=== PATIENT | male | born 1995 | race Caucasian/White ===

== ENCOUNTER → 2017-12-19 | Emergency (ER) | payer SELFPAY ==
[~2017-12-19] MED LIST: Sodium Chloride 0.9% 1000 ML 1,000 ML IV STA; Sodium Chloride 0.9% 1000 ML 1,000 ML ONE; VERSED 5 MG/5 ML ONE; Versed 2 MG/2 ML Injection IV ONE
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
[2017-12-19 22:02] LABS: Granulocyte Absolute (ANC) 9.34 (1.4-6.9); Hematocrit 47.7 % (42-50); Hemoglobin 15.9 gm/dl (12.5-18.0); Mean Cell Volume 89.2 fl (78-100); Mean Corpuscular Hemoglobin 29.7 pg (26-32); Mean Corpuscular Hgb Concent. 33.3 g/dl (32-36); Mean Platelet Volume 11.1 fl (6-9.5); Platelet Count 325 K/mm3 (150-450); Red Blood Count 5.35 M/mm3 (4.1-5.6); Red Cell Distribution Width 13.8 % (11.5-14.0); White Blood Count 17.4 K/mm3 (4.0-10.5)
[2017-12-19 22:20] LABS: Amphetamine,Urine NEG. (NEGATIVE); Barbiturate,Urine NEG. (NEGATIVE); Benzodiazepine,Urine NEG. (NEGATIVE); Cocaine,Urine NEG. (NEGATIVE); Methadone,Urine NEG. (NEGATIVE); Opiate,Urine NEG. (NEGATIVE); PCP,Urine NEG. (NEGATIVE); THC,Urine NEG. (NEGATIVE)
[2017-12-19 22:31] LABS: ALBUMIN 4.8 g/dL (3.4-5.0); ALKALINE PHOSPHATASE 78 U/L (46-116); ANION GAP 19.9 MEQ/L (5-15); BLOOD UREA NITROGEN 11 mg/dL (9-20); CHLORIDE 102 mEq/L (98-107); Calcium 8.8 mg/dL (8.5-10.1); Carbon Dioxide 24.9 mEq/L (21-32); Creatinine 1 0.99 mg/dl (0.55-1.30); EST GLOMERULAR FILTRATION RATE > 60 ML/MIN; Glucose 122 MG/DL (70-110); Potassium 3.6 mEq/L (3.5-5.1); SGOT/AST 33 U/L (15-37); SGPT/ALT 31 U/L (12-78); SODIUM 143 mEq/L (136-145); Total Protein 8.9 gm/dL (6.4-8.2)
[2017-12-19 22:50] LABS: Appearance CLEAR (CLEAR); Bilirubin NEGATIVE (NEGATIVE); Blood 50 Ery/ul (0-5); Glucose NEGATIVE (NEGATIVE); Ketones NEGATIVE (NEGATIVE); Leukocyte Esterase NEGATIVE (NEGATIVE); Nitrite NEGATIVE (NEGATIVE); Protein,Urine Dip TRACE (Negative); Urobilinogen NORMAL mg/dL (0-1)
[2017-12-19 22:51] LABS: Bacteria RARE /HPF (NEGATIVE)
[2017-12-19 22:58] VITALS: BP 127/86; PULSE 116
[2017-12-19 23:20] VITALS: O2SAT 100
[2017-12-20 02:44] LABS: ANISOCYTOSIS 1+; Eosinophil 3 % (0.00-3.0); Lymphocytes 35 % (24-44); Monocyte 5 % (0.0-12.0); Neutrophils 57 % (36.-66.); Platelet Estimate NORMAL (NORMAL); Poikilocytosis 1+; Total Cells Counted 100
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
== END ==
LOC: ED 21:07
DX: I60.9 Nontraumatic subarachnoid hemorrhage, unspecified (principal)
CPT/HCPCS: 36000; 36415; 51702; 70450; 72125; 80053; 80307; 81000; 85025; 93041; 96360; 99285; G0480; G0481; J2250

== ENCOUNTER 2019-12-08 19:06 | Emergency (ER) | payer SELFPAY ==
[2019-12-08] MEDS ORDERED: Zofran 4 MG/2 ML VIAL IV ONE (19:33)
[2019-12-08] MEDS ORDERED: Sodium Chloride 0.9% 1000 ML 1,000 ML IV STA (19:33)
[2019-12-08] MEDS ORDERED: Zofran 4 MG/2 ML VIAL ONE (19:37)
[2019-12-08] MEDS ORDERED: Sodium Chloride 0.9% 1000 ML 1,000 ML ONE (19:37)
[2019-12-08 20:00] LABS: ALKALINE PHOSPHATASE 67 U/L (38-126); ANION GAP 15.3 MEQ/L (5-15); BLOOD UREA NITROGEN 17 mg/dL (9-20); CHLORIDE 101 mmol/L (98-107); Calcium 9.5 mg/dL (8.4-10.2); Carbon Dioxide 29 mmol/L (22-30); Creatinine 1 0.86 mg/dL (0.66-1.25); Glucose 84 mg/dL (74-106); LIPASE 59 U/L (23-300); Potassium 3.5 mmol/L (3.5-5.1); SGOT/AST 24 U/L (17-59); SGPT/ALT 19 U/L (0-50); SODIUM 141 mmol/L (137-145)
[2019-12-08 20:02] LABS: Absolute Neutrophil Ct (ANC) 3.52 (1.4-6.9); BASOPHIL % 0.1 % (0.0-0.4); Basophil (Absolute #) 0.01 (0-0.4); Eosinophil % 1.5 % (0.00-5.0); Hematocrit 45.5 % (42-50); Hemoglobin 15.6 gm/dl (12.5-18.0); Lymphocyte (Absolute #) 2.35 (1.0-4.6); Lymphocytes % 34.5 % (24.0-44.0); Mean Cell Volume 86.7 fl (78-100); Mean Corpuscular Hemoglobin 29.7 pg (26-32); Mean Corpuscular Hgb Concent. 34.3 g/dl (32-36); Mean Platelet Volume 11.2 fl (7.5-11.0); Monocyte (Absolute #) 0.84 (0.0-1.3); Monocytes % 12.3 % (0.0-12.0); Neutrophil % 51.6 % (36.0-66.0); Platelet Count 233 K/mm3 (150-450); Red Blood Count 5.25 M/mm3 (4.1-5.6); White Blood Count 6.8 K/mm3 (4.0-10.5)
--- NOTE | 2019-12-08 20:25 | ERPHSYRPT ---
- History of Present Illness Time Seen by Provider: 12/08/19 19:30 Source: patient Exam Limitations: no limitations Patient Subjective Stated Complaint: pt states he has had a cough and vomiting for the last week. states he has not been able to keep anything down and feels like he may be dehydrated Triage Nursing Assessment: pt alert and oriented, answers questions approp. pt ambulatory with steady gait noted. skin pink warm and dry. respirations nonlabored with lungs cta. abd soft and nontender with bowel sounds present x4 Physician History: Patient is a 22-year-old male presents to our ED with complaints of nausea vomiting. Patient states he is unable to tolerate p.o. Patient had a cough last week. He experienced one bout of nausea and vomiting. However nausea vomiting at that time resolved. Patient's cough has now resolved. He denies pain. No trauma. No fever. No diarrhea. No rash. Symptoms are mild to moderate intensity. No specific worsening improving factors. Patient voices no other complaints this time. Timing/Duration: today, week(s) Severity: mild Modifying Factors: Improves With: other (No modifying factors.) Associated Symptoms: nausea, vomiting, No abdominal pain, No shortness of breath , No heartburn, No diaphoresis, No cough, No chills, No chest pain, No fever, No headaches, No loss of appetite, No malaise Allergies/Adverse Reactions: No Known Drug Allergies Allergy (Verified 12/08/19 19:26) Home Medications: No Reportable Medications [No Reported Medications] 12/08/19 [History] Hx Tetanus, Diphtheria Vaccination/Date Given: Yes Hx Influenza Vaccination/Date Given: No Hx Pneumococcal Vaccination/Date Given: No Immunizations Up to Date: Yes - Review of Systems Constitutional: No Fever, No Chills Eyes: No Symptoms Ears, Nose, & Throat: No Symptoms Respiratory: No Cough, No Dyspnea Cardiac: No Chest Pain, No Edema, No Syncope Abdominal/Gastrointestinal: Nausea, Vomiting, No Abdominal Pain, No Diarrhea Genitourinary Symptoms: No Dysuria Musculoskeletal: No Back Pain, No Neck Pain Skin: No Rash Neurological: No Dizziness, No Focal Weakness, No Sensory Changes Psychological: No Symptoms Endocrine: No Symptoms All Other Systems: Reviewed and Negative - Past Medical History Pertinent Past Medical History: No Other Medical History: heart murmur - Past Surgical History Past Surgical History: Yes Gastrointestinal: Hernia Repair - Social History Smoking Status: Never smoker Exposure to second hand smoke: Yes Drug Use: none Patient Lives Alone: No - Nursing Vital Signs Nursing Vital Signs: Initial Vital Signs Temperature 97.5 F 12/08/19 19:16 Pulse Rate 60 12/08/19 19:16 Respiratory Rate 16 12/08/19 19:16 Blood Pressure 137/96 12/08/19 19:16 O2 Sat by Pulse Oximetry 97 12/08/19 19:16 Pain Scale Pain Intensity 0 - Physical Exam General Appearance: no apparent distress, alert Eye Exam: PERRL/EOMI, eyes nml inspection Ears, Nose, Throat Exam: normal ENT inspection, TMs normal, pharynx normal, moist mucous membranes Neck Exam: normal inspection, non-tender, supple, full range of motion Respiratory Exam: normal breath sounds, lungs clear, No respiratory distress Cardiovascular Exam: regular rate/rhythm, normal heart sounds, normal peripheral pulses Gastrointestinal/Abdomen Exam: soft, normal bowel sounds, No tenderness, No mass Back Exam: normal inspection, normal range of motion, No CVA tenderness, No vertebral tenderness Extremity Exam: normal inspection, normal range of motion, pelvis stable Neurologic Exam: alert, oriented x 3, cooperative, normal mood/affect, nml cerebellar function, nml station & gait, sensation nml, No motor deficits Skin Exam: normal color, warm, dry, No rash Lymphatic Exam: No adenopathy SpO2 Interpretation: normal SpO2: 97 O2 Delivery: Room Air Ordered Tests: Active Orders 24 hr Category Date Time Status IV Insertion STAT Care 12/08/19 19:33 Active CBC W DIFF Stat Lab 12/08/19 19:41 Completed CMP Stat Lab 12/08/19 19:41 Completed LIPASE Stat Lab 12/08/19 19:41 Completed UA W/RFX UR CULTURE Stat Lab 12/08/19 21:30 Completed Medication Summary Discontinued Medications Generic Name Dose Route Start Last Admin Trade Name Freq PRN Reason Stop Dose Admin Sodium Chloride 1,000 mls @ 999 mls/hr 12/08/19 19:33 12/08/19 20:33 Sodium Chloride 0.9% 1000 Ml IV 12/08/19 20:33 Infused .Q1H1M STA Infusion Sodium Chloride Confirm 12/08/19 19:37 Sodium Chloride 0.9% 1000 Ml Administered 12/08/19 19:38 Dose 1,000 mls @ ud .ROUTE .STK-[facility] ONE Ondansetron HCl 4 mg 12/08/19 19:33 12/08/19 19:39 Zofran 4 Mg/2 Ml Vial IV 12/08/19 19:34 4 mg STAT ONE Administration Ondansetron HCl Confirm 12/08/19 19:37 Zofran 4 Mg/2 Ml Vial Administered 12/08/19 19:38 Dose 4 mg .ROUTE .[facility] ONE Lab/Rad Data: Laboratory Result Diagrams 12/08/19 19:41 12/08/19 19:41 Laboratory Results 12/08/19 12/08/19 12/08/19 Range/Units 21:30 19:41 19:41 WBC 6.8 (4.0-10.5) K/mm3 RBC 5.25 (4.1-5.6) M/mm3 Hgb 15.6 (12.5-18.0) gm/dl Hct 45.5 (42-50) % MCV 86.7 (78-100) fl MCH 29.7 (26-32) pg MCHC 34.3 (32-36) g/dl RDW 13.0 (11.5-14.0) % Plt Count 233 (150-450) K/mm3 MPV 11.2 H (7.5-11.0) fl Gran % 51.6 (36.0-66.0) % Eos # (Auto) 0.10 (0-0.5) Absolute Lymphs (auto) 2.35 (1.0-4.6) Absolute Monos (auto) 0.84 (0.0-1.3) Lymphocytes % 34.5 (24.0-44.0) % Monocytes % 12.3 H (0.0-12.0) % Eosinophils % 1.5 (0.00-5.0) % Basophils % 0.1 (0.0-0.4) % Absolute Granulocytes 3.52 (1.4-6.9) Basophils # 0.01 (0-0.4) Sodium 141 (137-145) mmol/L Potassium 3.5 (3.5-5.1) mmol/L Chloride 101 (98-107) mmol/L Carbon Dioxide 29 (22-30) mmol/L Anion Gap 15.3 H (5-15) MEQ/L BUN 17 (9-20) mg/dL Creatinine 0.86 (0.66-1.25) mg/dL Estimated GFR > 60.0 ML/MIN Glucose 84 (74-106) mg/dL Calcium 9.5 (8.4-10.2) mg/dL Total Bilirubin 2.40 H (0.2-1.3) mg/dL AST 24 (17-59) U/L ALT 19 (0-50) U/L Alkaline Phosphatase 67 (38-126) U/L Serum Total Protein 9.0 H (6.3-8.2) g/dL Albumin 5.0 (3.5-5.0) g/dL Lipase 59 (23-300) U/L Urine Color YELLOW (YELLOW) Urine Appearance CLEAR (CLEAR) Urine pH 6.0 (5-6) Ur Specific [place] 1.028 (1.005-1.025) Urine Protein NEGATIVE (Negative) Urine Ketones MODERATE (NEGATIVE) Urine Blood NEGATIVE (0-5) Duran/ul Urine Nitrite NEGATIVE (NEGATIVE) Urine Bilirubin NEGATIVE (NEGATIVE) Urine Urobilinogen NEGATIVE (0-1) mg/dL Ur Leukocyte Esterase NEGATIVE (NEGATIVE) Urine WBC (Auto) 0-2 (0-5) /HPF Urine RBC (Auto) NONE (0-2) /HPF U Epithel Cells (Auto) NONE (FEW) /HPF Urine Bacteria (Auto) NONE (NEGATIVE) /HPF Urine Mucus (Auto) MANY (NEGATIVE) /HPF Urine Culture Reflexed NO (NO) Urine Glucose NEGATIVE (NEGATIVE) mg/dL - Progress Progress: improved Progress Note: 12/08/19 20:23 Patient reassessed. Nausea and vomiting resolved. Patient appears well. Nontoxic no acute distress. Patient tolerating p.o. Patient requesting discharge. Counseled pt/family regarding: lab results, diagnosis, need for follow-up - Departure Departure Disposition: Home Clinical Impression: Nausea and vomiting Condition: Good Critical Care Time: No Referrals: DOCTOR,NO FAMILY [Primary Care Provider] - Instructions: Nausea -- Adult, Vomiting -- Adult Additional Instructions: Discharge/Care Plan POORNIMA LO was seen on 12/08/19 in the Emergency Room. The patient was counseled regarding Diagnosis,Lab results, Imaging studies, need for follow up and when to return to the Emergency Room. Prescriptions given: Discharge Note I have spoken with the patient and/or caregivers. I have explained the patient' s condition, diagnosis and treatment plan based on the information available to me at this time. I have answered the patient's and/or caregiver's questions and addressed any concerns. The patient and/or caregivers have as good understanding of the patient's diagnosis, condition and treatment plan as can be expected at this point. The vital signs have been stable. The patient's condition is stable and appropriate for discharge from the emergency department. The patient will pursue further outpatient evaluation with the primary care physician or other designated or consulting physician as outlined in the discharge instructions. The patient and/or caregivers are agreeable to this plan of care and follow-up instructions have been explained in detail. The patient and/or caregivers have received these instruction. The patient/and or caregivers are aware that any significant change in condition or worsening of symptoms should prompt an immediate return to this or the closest emergency department or call 911.
[2019-12-08 20:26] VITALS: BP 133/83
[2019-12-08 20:35] VITALS: PULSE 64
[2019-12-08 22:09] LABS: Appearance CLEAR (CLEAR); Bilirubin NEGATIVE (NEGATIVE); Blood NEGATIVE Ery/ul (0-5); Glucose NEGATIVE (NEGATIVE); Ketones MODERATE (NEGATIVE); Leukocyte Esterase NEGATIVE (NEGATIVE); Mucus MANY /HPF (NEGATIVE); Nitrite NEGATIVE (NEGATIVE); Protein,Urine Dip NEGATIVE (Negative); Specific Gravity 1.028 (1.005-1.025); Urobilinogen NEGATIVE mg/dL (0-1); WBC 0-2 /HPF (0-5)
[2019-12-09 02:03] VITALS: O2SAT 97
== END 2019-12-08 20:30 | disposition home or self-care (01) ==
LOC: ED 19:06
DX: R11.2 Nausea with vomiting, unspecified (principal)
CPT/HCPCS: 36000; 36415; 80053; 81001; 83690; 85025; 96374; 99284; J2405

== ENCOUNTER 2019-12-15 08:10 | Emergency (ER) | payer MEDICAID ==
[2019-12-15] MEDS ORDERED: Sodium Chloride 0.9% 1000 ML 1,000 ML IV STA (08:22)
[2019-12-15] MEDS ORDERED: TORAdol 30 mg Injection IV ONE (08:22)
[2019-12-15] MEDS ORDERED: Sodium Chloride 0.9% 1000 ML 1,000 ML ONE (08:30)
[2019-12-15] MEDS ORDERED: TORAdol 30 mg Injection ONE (08:30)
--- NOTE | 2019-12-15 08:38 | ERPHSYRPT ---
- History of Present Illness Time Seen by Provider: 12/15/19 08:20 Historian: patient Exam Limitations: no limitations Patient Subjective Stated Complaint: Pt states "This morning I had horrible pain in my kidneys and lower abdomen. Mostly on the left side." Triage Nursing Assessment: Pt presented alert and oriented X 3, skin wpd PT ambulates with an uprgith steady gait, able to speak in clear full sentences. Pt in no apparent respiratory distress. Physician History: Patient is a 24-year-old male presents to our ED with abdominal pain. Patient' s pain started this morning upon awakening. Patient states he rolled onto his side and developed a severe periumbilical pain that radiated towards his kidney. Pain described as an ache that was constant. Pain somewhat improved but not resolved. No associated nausea or vomiting. No diarrhea. No trauma. No fever. Pain is moderate in intensity. No significant worsening or improving factors. Patient is otherwise healthy. He voices no other complaints at this time. Timing/Duration: today Activities at Onset: none Quality: aching Abdominal Pain Onset Location: periumbilical, flank Pain Radiation: flank Severity of Pain-Max: moderate Severity of Pain-Current: moderate Modifying Factors: Improves With: nothing Associated Symptoms: No chest pain, No diaphoresis, No diarrhea, No fever/chills , No fatigue, No headache, No heartburn, No loss of appetite, No nausea, No rash , No shortness of breath, No syncope, No testicular pain, No vomiting, No weakness Previous symptoms: no prior history Allergies/Adverse Reactions: No Known Drug Allergies Allergy (Verified 12/08/19 19:26) Home Medications: No Reportable Medications [No Reported Medications] 12/08/19 [History] Hx Tetanus, Diphtheria Vaccination/Date Given: Yes Hx Influenza Vaccination/Date Given: No Hx Pneumococcal Vaccination/Date Given: No Immunizations Up to Date: Yes - Review of Systems Constitutional: No Fever, No Chills Eyes: No Symptoms Ears, Nose, & Throat: No Symptoms Respiratory: No Cough, No Dyspnea Cardiac: No Chest Pain, No Edema, No Syncope Abdominal/Gastrointestinal: Abdominal Pain, Constipation, No Nausea, No Vomiting , No Diarrhea Genitourinary Symptoms: No Symptoms, No Dysuria Musculoskeletal: No Symptoms, No Back Pain, No Neck Pain Skin: No Symptoms, No Rash Neurological: No Symptoms, No Dizziness, No Focal Weakness, No Sensory Changes Psychological: No Symptoms Endocrine: No Symptoms Hematologic/Lymphatic: No Symptoms All Other Systems: Reviewed and Negative - Past Medical History Pertinent Past Medical History: No Other Medical History: heart murmur - Past Surgical History Past Surgical History: Yes Gastrointestinal: Hernia Repair - Social History Smoking Status: Never smoker Exposure to second hand smoke: Yes Drug Use: marijuana Patient Lives Alone: No - Nursing Vital Signs Nursing Vital Signs: Initial Vital Signs Temperature 97.6 F 12/15/19 08:15 Pulse Rate 79 12/15/19 08:15 Respiratory Rate 20 12/15/19 08:15 Blood Pressure 130/79 12/15/19 08:15 O2 Sat by Pulse Oximetry 100 12/15/19 08:15 Pain Scale Pain Intensity 2 - Physical Exam General Appearance: no apparent distress, alert Eye Exam: PERRL/EOMI, eyes nml inspection Ears, Nose, Throat Exam: normal ENT inspection, pharynx normal, moist mucous membranes Neck Exam: normal inspection, non-tender, supple, full range of motion Respiratory Exam: normal breath sounds, lungs clear, No respiratory distress Cardiovascular Exam: regular rate/rhythm, normal heart sounds Gastrointestinal/Abdomen Exam: soft, tenderness (periubmilical TTP), No mass, No guarding, No pulsatile mass, No rebound Back Exam: normal inspection, normal range of motion, No CVA tenderness, No vertebral tenderness Extremity Exam: normal inspection, normal range of motion, pelvis stable Neurologic Exam: alert, oriented x 3, cooperative, normal mood/affect, nml cerebellar function, sensation nml, No motor deficits Skin Exam: normal color, warm, dry SpO2: 100 - CT Exams Abdomen/Pelvis CT Interpretation: Negative, Tele-radiologist Report (No acute intra-abdominal findings.) Ordered Tests: Active Orders 24 hr Category Date Time Status Clean Catch Urine Specimen STAT Care 12/15/19 08:22 Active IV Insertion STAT Care 12/15/19 08:22 Active ABDOMEN AND PELVIS W CONTRAST [CT] Stat Exams 12/15/19 08:30 Completed CBC W DIFF Stat Lab 12/15/19 08:42 Completed CMP Stat Lab 12/15/19 08:42 Completed LIPASE Stat Lab 12/15/19 08:42 Completed UA W/RFX UR CULTURE Stat Lab 12/15/19 09:52 Ordered Urine Triage Profile Stat Lab 02/13/20 08:42 Completed Medication Summary Discontinued Medications Generic Name Dose Route Start Last Admin Trade Name [place] PRN Reason Stop Dose Admin Sodium Chloride 1,000 mls @ 999 mls/hr 12/15/19 08:22 12/15/19 08:32 Sodium Chloride 0.9% 1000 Ml IV 12/15/19 09:22 999 mls/hr .Q1H1M STA Administration Sodium Chloride Confirm 12/15/19 08:30 Sodium Chloride 0.9% 1000 Ml Administered 12/15/19 08:31 Dose 1,000 mls @ ud .ROUTE .STK-MED ONE Ketorolac Tromethamine 30 mg 12/15/19 08:22 12/15/19 08:32 Toradol 30 Mg Injection IV 12/15/19 08:23 30 mg STAT ONE Administration Ketorolac Tromethamine Confirm 12/15/19 08:30 Toradol 30 Mg Injection Administered 12/15/19 08:31 Dose 30 mg .ROUTE .STK-MED ONE Lab/Rad Data: Laboratory Result Diagrams 12/15/19 08:42 12/15/19 08:42 Laboratory Results 12/15/19 12/15/19 12/15/19 Range/Units 08:42 08:42 08:42 WBC 10.3 (4.0-10.5) K/mm3 RBC 4.96 (4.1-5.6) M/mm3 Hgb 14.7 (12.5-18.0) gm/dl Hct 42.9 (42-50) % MCV 86.5 (78-100) fl MCH 29.6 (26-32) pg MCHC 34.3 (32-36) g/dl RDW 13.3 (11.5-14.0) % Plt Count 268 (150-450) K/mm3 MPV 11.3 H (7.5-11.0) fl Gran % 78.7 H (36.0-66.0) % Eos # (Auto) 0.12 (0-0.5) Absolute Lymphs (auto) 1.24 (1.0-4.6) Absolute Monos (auto) 0.81 (0.0-1.3) Lymphocytes % 12.1 L (24.0-44.0) % Monocytes % 7.9 (0.0-12.0) % Eosinophils % 1.2 (0.00-5.0) % Basophils % 0.1 (0.0-0.4) % Absolute Granulocytes 8.11 H (1.4-6.9) Basophils # 0.01 (0-0.4) Sodium 143 (137-145) mmol/L Potassium 3.8 (3.5-5.1) mmol/L Chloride 107 (98-107) mmol/L Carbon Dioxide 27 (22-30) mmol/L Anion Gap 13.1 (5-15) MEQ/L BUN 12 (9-20) mg/dL Creatinine 0.89 (0.66-1.25) mg/dL Estimated GFR > 60.0 ML/MIN Glucose 103 (74-106) mg/dL Calcium 9.7 (8.4-10.2) mg/dL Total Bilirubin 2.20 H (0.2-1.3) mg/dL AST 19 (17-59) U/L ALT 15 (0-50) U/L Alkaline Phosphatase 59 (38-126) U/L Serum Total Protein 8.4 H (6.3-8.2) g/dL Albumin 4.8 (3.5-5.0) g/dL Lipase 103 (23-300) U/L Urine Opiates Level NEGATIVE (NEGATIVE) Ur Methadone NEGATIVE (NEGATIVE) Urine Barbiturates NEGATIVE (NEGATIVE) Ur Phencyclidine (PCP) NEGATIVE (NEGATIVE) Urine Amphetamine NEGATIVE (NEGATIVE) U Benzodiazepine Level NEGATIVE (NEGATIVE) Urine Cocaine NEGATIVE (NEGATIVE) Urine Marijuana (THC) POSITIVE (NEGATIVE) - Progress Progress Note: 12/15/19 09:55 Patient reassessed. Abdominal pain resolved. Work-up reveals elevated total bilirubin. However patient has no epigastric or right upper quadrant discomfort. This will need follow-up as an outpatient. Urine toxicology reveals THC positive. Counseled pt/family regarding: drug and/or alcohol abuse, lab results, diagnosis , need for follow-up, rad results, smoking cessation - Departure Departure Disposition: Home Clinical Impression: Abdominal pain, Total bilirubin, elevated, Marijuana use Condition: Critical Care Time: No Referrals: KATIE NIEVES [Primary Care Provider] - Additional Instructions: ABDOMINAL PAINDISCHARGE INSTRUCTIONS Activity Instructions: May bathe or shower on: Diet: Handouts Given: Other Information: If applicable, medications brought in with patient were sent home with patient: 1. There are several different causes for abdominal pain, some of which may not be able to be identified on initial examination. 2. The important thing to remember is that bodily functions can change in a short period of time. If you notice any of the following symptoms, return to the emergency department or consult your doctor immediately: A. Worsening pain or no improvement in the next 12 hours. B. Increasing, severe abdominal pain C. Blood in stool D. Black stools E. Persistent vomiting F. Fever or chills or other symptomsDischarge/Care Plan POORNIMA LO was seen on 12/15/19 in the Emergency Room. The patient was counseled regarding Diagnosis,Lab results, Imaging studies, need for follow up and when to return to the Emergency Room. Prescriptions given: Discharge Note I have spoken with the patient and/or caregivers. I have explained the patient' s condition, diagnosis and treatment plan based on the information available to me at this time. I have answered the patient's and/or caregiver's questions and addressed any concerns. The patient and/or caregivers have as good understanding of the patient's diagnosis, condition and treatment plan as can be expected at this point. The vital signs have been stable. The patient's condition is stable and appropriate for discharge from the emergency department. The patient will pursue further outpatient evaluation with the primary care physician or other designated or consulting physician as outlined in the discharge instructions. The patient and/or caregivers are agreeable to this plan of care and follow-up instructions have been explained in detail. The patient and/or caregivers have received these instruction. The patient/and or caregivers are aware that any significant change in condition or worsening of symptoms should prompt an immediate return to this or the closest emergency department or call 911.
[2019-12-15 08:47] LABS: Absolute Neutrophil Ct (ANC) 8.11 (1.4-6.9); BASOPHIL % 0.1 % (0.0-0.4); Basophil (Absolute #) 0.01 (0-0.4); Eosinophil % 1.2 % (0.00-5.0); Eosinophil (Absolute #) 0.12 (0-0.5); Hematocrit 42.9 % (42-50); Hemoglobin 14.7 gm/dl (12.5-18.0); Lymphocyte (Absolute #) 1.24 (1.0-4.6); Lymphocytes % 12.1 % (24.0-44.0); Mean Cell Volume 86.5 fl (78-100); Mean Corpuscular Hemoglobin 29.6 pg (26-32); Mean Corpuscular Hgb Concent. 34.3 g/dl (32-36); Mean Platelet Volume 11.3 fl (7.5-11.0); Monocyte (Absolute #) 0.81 (0.0-1.3); Monocytes % 7.9 % (0.0-12.0); Neutrophil % 78.7 % (36.0-66.0); Platelet Count 268 K/mm3 (150-450); Red Blood Count 4.96 M/mm3 (4.1-5.6); Red Cell Distribution Width 13.3 % (11.5-14.0); White Blood Count 10.3 K/mm3 (4.0-10.5)
[2019-12-15 08:56] LABS: ALBUMIN 4.8 g/dL (3.5-5.0); ALKALINE PHOSPHATASE 59 U/L (38-126); ANION GAP 13.1 MEQ/L (5-15); BLOOD UREA NITROGEN 12 mg/dL (9-20); CHLORIDE 107 mmol/L (98-107); Calcium 9.7 mg/dL (8.4-10.2); Carbon Dioxide 27 mmol/L (22-30); Creatinine 1 0.89 mg/dL (0.66-1.25); Glucose 103 mg/dL (74-106); LIPASE 103 U/L (23-300); Potassium 3.8 mmol/L (3.5-5.1); SGOT/AST 19 U/L (17-59); SGPT/ALT 15 U/L (0-50); SODIUM 143 mmol/L (137-145); Total Protein 8.4 g/dL (6.3-8.2)
[2019-12-15 09:18] LABS: Amphetamine,Urine NEGATIVE (NEGATIVE); Barbiturate,Urine NEGATIVE (NEGATIVE); Benzodiazepine,Urine NEGATIVE (NEGATIVE); Cocaine,Urine NEGATIVE (NEGATIVE); Methadone,Urine NEGATIVE (NEGATIVE); Opiate,Urine NEGATIVE (NEGATIVE); PCP,Urine NEGATIVE (NEGATIVE); THC,Urine POSITIVE (NEGATIVE)
--- NOTE | 2019-12-15 09:22 | XRAY ---
Indication: Left abdomen pain. Appendicitis. Multiple contiguous axial images obtained through the abdomen and pelvis using 80 cc Isovue 370 contrast only. Comparison: None Lung bases are clear. Heart is not enlarged. Noncontrasted stomach and bowel loops appear nonobstructed. Normal appendix. No free fluid/air. Remaining liver, gallbladder, pancreas, spleen, adrenal glands, kidneys, ureters, bladder, and aorta appear normal in CT appearance and attenuation. No pathologic retroperitoneal lymphadenopathy. Osseous structures intact. Impression: Negative CT abdomen/pelvis with contrast exam.
[2019-12-15 10:16] VITALS: BP 125/71; PULSE 71; O2SAT 99
[2019-12-15 10:29] LABS: Appearance CLEAR (CLEAR); Bacteria RARE /HPF (NEGATIVE); Bilirubin NEGATIVE (NEGATIVE); Blood MODERATE Ery/ul (0-5); Glucose NEGATIVE (NEGATIVE); Ketones NEGATIVE (NEGATIVE); Leukocyte Esterase NEGATIVE (NEGATIVE); Mucus SLIGHT /HPF (NEGATIVE); Nitrite NEGATIVE (NEGATIVE); Protein,Urine Dip NEGATIVE (Negative); Specific Gravity 1.015 (1.005-1.025); Urobilinogen NEGATIVE mg/dL (0-1)
[2019-12-15 10:35] LABS: RBC >101 /HPF (0-2)
== END 2019-12-15 10:56 | disposition home or self-care (01) ==
LOC: ED 08:10
DX: E80.7 Disorder of bilirubin metabolism, unspecified (principal); F12.90 Cannabis use, unspecified, uncomplicated
CPT/HCPCS: 36000; 36415; 74177; 80053; 80307; 81001; 83690; 85025; 87086; 96360; 96374; 99284; J1885